=== PATIENT | female | born 1960 | race Two or more races ===

== ENCOUNTER 2017-04-08 07:05 | Outpatient (CLI) | payer OTHER ==
[~2017-04-08 07:05] MED LIST: ADULT ASPIRIN81 MG; CATAFLAM50 MG; INDERAL LA80 MG; KETO10TA2 PO; N
== END 2017-04-08 07:16 | disposition home or self-care (01) ==
LOC: SONOGRAMA 07:05 → MAMO-SONO 08:45
DX: R10.9 Unspecified abdominal pain (principal)

== ENCOUNTER 2017-04-08 07:39 | Outpatient (CLI) | payer OTHER | END 2017-04-08 07:51 | disposition home or self-care (01) | LOC: LAB 07:39 | DX: I10 Essential (primary) hypertension (principal); E78.4 Other hyperlipidemia; R10.9 Unspecified abdominal pain ==

== ENCOUNTER 2017-04-20 15:14 | Outpatient (CLI) | payer OTHER | END 2017-04-20 15:16 | disposition home or self-care (01) | LOC: LAB 15:14 | DX: B34.9 Viral infection, unspecified (principal) ==

== ENCOUNTER → 2017-05-18 | Outpatient (CLI) | payer OTHER ==
[~2017-05-18] VITALS: Ht 152.4 cm; Wt 50.8 kg
== END | disposition home or self-care (01) ==
LOC: OFIC 805 08:10
DX: J38.2 Nodules of vocal cords (principal); R49.0 Dysphonia

== ENCOUNTER 2017-07-02 07:29 | Outpatient (CLI) | payer OTHER ==
[~2017-07-02] VITALS: Ht 152.4 cm; Wt 50.8 kg
== END 2017-07-02 07:45 | disposition home or self-care (01) ==
LOC: OFIC 805 07:29
DX: J31.2 Chronic pharyngitis (principal); J31.0 Chronic rhinitis; R49.0 Dysphonia

== ENCOUNTER 2017-07-23 15:04 | Outpatient (CLI) | payer OTHER ==
[~2017-07-23] VITALS: Ht 152.4 cm; Wt 50.8 kg
== END 2017-07-23 15:20 | disposition home or self-care (01) ==
LOC: OFIC 805 15:04
DX: J31.0 Chronic rhinitis (principal); J38.7 Other diseases of larynx

== ENCOUNTER 2017-09-04 10:53 | Outpatient (CLI) | payer OTHER | END 2017-09-04 11:01 | disposition home or self-care (01) | LOC: SONOGRAMA 10:53 | DX: R22.1 Localized swelling, mass and lump, neck (principal) ==

== ENCOUNTER 2017-09-10 08:08 | Outpatient (CLI) | payer OTHER ==
[~2017-09-10] VITALS: Ht 152.4 cm; Wt 50.8 kg
== END 2017-09-10 08:25 | disposition home or self-care (01) ==
LOC: OFIC 805 08:08
DX: E04.1 Nontoxic single thyroid nodule (principal); R22.1 Localized swelling, mass and lump, neck

== ENCOUNTER 2017-09-10 09:46 | Outpatient (CLI) | payer OTHER | END 2017-09-10 09:51 | disposition home or self-care (01) | LOC: MAMO-SONO 09:46 | DX: Z12.31 Encounter for screening mammogram for malignant neoplasm of breast (principal); N60.11 Diffuse cystic mastopathy of right breast; N60.12 Diffuse cystic mastopathy of left breast ==

== ENCOUNTER 2017-09-14 07:52 | Outpatient (CLI) | payer OTHER | END 2017-09-14 07:59 | disposition home or self-care (01) | LOC: LAB 07:52 | DX: E04.1 Nontoxic single thyroid nodule (principal) ==

== ENCOUNTER 2017-12-13 08:29 | Outpatient (CLI) | payer OTHER ==
[~2017-12-13] VITALS: Ht 152.4 cm; Wt 50.8 kg
== END 2017-12-13 09:45 | disposition home or self-care (01) ==
LOC: OFIC 805 08:29
DX: E04.1 Nontoxic single thyroid nodule (principal); R49.0 Dysphonia; K21.0 Gastro-esophageal reflux disease with esophagitis

== ENCOUNTER 2017-12-24 09:04 | Outpatient (CLI) | payer OTHER | END 2017-12-24 09:20 | disposition home or self-care (01) | LOC: OFIC 805 09:04 | DX: J37.0 Chronic laryngitis (principal); K21.9 Gastro-esophageal reflux disease without esophagitis ==

== ENCOUNTER 2017-12-30 13:30 | Outpatient (CLI) | payer OTHER ==
[~2017-12-30] VITALS: Ht 152.4 cm; Wt 50.8 kg
== END 2017-12-30 13:40 | disposition home or self-care (01) ==
LOC: OFIC 805 13:30
DX: J04.0 Acute laryngitis (principal); R22.1 Localized swelling, mass and lump, neck; J31.0 Chronic rhinitis; R05 Cough; K21.9 Gastro-esophageal reflux disease without esophagitis

== ENCOUNTER 2018-01-31 08:26 | Outpatient (CLI) | payer OTHER ==
[~2018-01-31] VITALS: Ht 152.4 cm; Wt 50.8 kg
== END 2018-01-31 08:50 | disposition home or self-care (01) ==
LOC: OFIC 805 08:26
DX: R05 Cough (principal); J06.9 Acute upper respiratory infection, unspecified

== ENCOUNTER 2018-01-31 10:03 | Outpatient (CLI) | payer OTHER | END 2018-01-31 10:15 | disposition home or self-care (01) | LOC: LAB 10:03 | DX: J11.1 Influenza due to unidentified influenza virus with other respiratory manifestations (principal) ==

== ENCOUNTER 2018-02-12 11:58 | Outpatient (CLI) | payer OTHER | END 2018-02-12 12:14 | disposition home or self-care (01) | LOC: RAD 11:58 | DX: J11.1 Influenza due to unidentified influenza virus with other respiratory manifestations (principal) ==

== ENCOUNTER 2018-04-06 09:06 | Outpatient (CLI) | payer OTHER | END 2018-04-06 09:35 | disposition home or self-care (01) | LOC: MRI 09:06 → RAD 09:06 | DX: M54.2 Cervicalgia (principal) ==

== ENCOUNTER 2018-11-21 14:27 | Outpatient (CLI) | payer OTHER | END 2018-11-21 14:40 | disposition home or self-care (01) | LOC: NUCLEAR 14:27 | DX: M81.0 Age-related osteoporosis without current pathological fracture (principal); M85.80 Other specified disorders of bone density and structure, unspecified site ==

== ENCOUNTER 2018-11-25 13:24 | Outpatient (CLI) | payer OTHER | END 2018-11-25 13:33 | disposition home or self-care (01) | LOC: MAMO-SONO 13:24 | DX: Z12.31 Encounter for screening mammogram for malignant neoplasm of breast (principal); Z87.898 Personal history of other specified conditions; N63.10 Unspecified lump in the right breast, unspecified quadrant; N63.20 Unspecified lump in the left breast, unspecified quadrant ==

== ENCOUNTER 2019-01-12 16:18 | Outpatient (CLI) | payer OTHER | END 2019-01-12 16:22 | disposition home or self-care (01) | LOC: LAB 16:18 | DX: J11.1 Influenza due to unidentified influenza virus with other respiratory manifestations (principal) ==

== ENCOUNTER 2019-02-03 19:06 | Emergency (ER) | payer OTHER ==
[~2019-02-03] VITALS: Ht 154.9 cm; Wt 8.2 kg
[2019-02-03] MEDS ORDERED: CALTRATE 600+D1 EAC1 (19:21)
[2019-02-03] MEDS ORDERED: VITAMIN B122500 MCG (19:21)
== END 2019-02-03 20:33 | disposition home or self-care (01) ==
LOC: ER 19:06
DX: T23.212A Burn of second degree of left thumb (nail), initial encounter (principal); X08.8XXA Exposure to other specified smoke, fire and flames, initial encounter; Y93.89 Activity, other specified; Y92.89 Other specified places as the place of occurrence of the external cause; Y99.8 Other external cause status

== ENCOUNTER 2020-01-12 14:29 | Outpatient (CLI) | payer OTHER ==
[~2020-01-12 14:29] MED LIST changes: +CALTRATE 600+D1 EAC1; +VITAMIN B122500 MCG
== END 2020-01-12 15:04 | disposition home or self-care (01) ==
LOC: SONOGRAMA 14:29
DX: E04.1 Nontoxic single thyroid nodule (principal)

== ENCOUNTER 2020-11-29 10:15 | Outpatient (CLI) | payer OTHER | END 2020-11-29 10:30 | disposition home or self-care (01) | LOC: PPH VACUNA 10:15 | PROVIDERS: ATTEND Emergency Medicine Pediatric Emergency Medicine | DX: Z23 Encounter for immunization (principal) ==

== ENCOUNTER 2020-11-29 14:33 | Outpatient (CLI) | payer OTHER | END 2020-11-29 14:42 | disposition home or self-care (01) | LOC: NUCLEAR 14:33 | DX: M81.0 Age-related osteoporosis without current pathological fracture (principal) ==

== ENCOUNTER 2021-01-23 11:35 | Outpatient (CLI) | payer OTHER | END 2021-01-23 11:56 | disposition home or self-care (01) | LOC: MAMO-SONO 11:35 | PROVIDERS: ATTEND Specialist | DX: N63.0 Unspecified lump in unspecified breast (principal); Z12.31 Encounter for screening mammogram for malignant neoplasm of breast ==

== ENCOUNTER 2021-05-23 11:52 | Outpatient (CLI) | payer OTHER | END 2021-05-23 12:07 | disposition home or self-care (01) | LOC: SONOGRAMA 11:52 | PROVIDERS: ATTEND Otolaryngology | DX: R22.1 Localized swelling, mass and lump, neck (principal) ==

== ENCOUNTER 2021-06-26 08:00 | Outpatient (CLI) | payer OTHER | END 2021-06-26 08:30 | disposition home or self-care (01) | LOC: PPH VACUNA 08:00 | PROVIDERS: ATTEND Emergency Medicine Pediatric Emergency Medicine | DX: Z23 Encounter for immunization (principal) ==

== ENCOUNTER 2021-06-27 15:02 | Outpatient (CLI) | payer OTHER | END 2021-06-27 15:17 | disposition home or self-care (01) | LOC: LAB 15:02 | PROVIDERS: ATTEND General Practice | DX: Z20.822 Contact with and (suspected) exposure to COVID-19 (principal) ==

== ENCOUNTER 2021-08-05 07:53 | Outpatient (CLI) | payer OTHER | END 2021-08-05 08:06 | disposition home or self-care (01) | LOC: SONOGRAMA 07:53 | DX: R10.11 Right upper quadrant pain (principal) ==

== ENCOUNTER 2021-11-03 09:46 | Outpatient (CLI) | payer OTHER | END 2021-11-03 09:56 | disposition home or self-care (01) | LOC: PPH VACUNA 09:46 | PROVIDERS: ATTEND Emergency Medicine Pediatric Emergency Medicine | DX: Z23 Encounter for immunization (principal) ==

== ENCOUNTER 2022-01-26 07:36 | Outpatient (CLI) | payer OTHER | END 2022-01-26 08:02 | disposition home or self-care (01) | LOC: MAMO-SONO 07:36 | PROVIDERS: ATTEND Specialist | DX: Z12.31 Encounter for screening mammogram for malignant neoplasm of breast (principal); N63.0 Unspecified lump in unspecified breast ==

== ENCOUNTER 2022-02-12 07:25 | Outpatient (CLI) | payer OTHER | END 2022-02-12 07:42 | disposition home or self-care (01) | LOC: TOM 07:25 | PROVIDERS: ATTEND Internal Medicine Gastroenterology | DX: R10.12 Left upper quadrant pain (principal) ==

== ENCOUNTER → 2022-08-07 | Emergency (ER) | payer OTHER ==
[~2022-08-07] VITALS: Ht 154.9 cm; Wt 53.5 kg
== END | disposition home or self-care (01) ==
LOC: ER 11:58
DX: R42 Dizziness and giddiness (principal); Z88.8 Allergy status to other drugs, medicaments and biological substances

== ENCOUNTER 2022-12-31 13:49 | Outpatient (CLI) | payer OTHER | END 2022-12-31 13:51 | disposition home or self-care (01) | LOC: NUCLEAR 13:49 | DX: M81.0 Age-related osteoporosis without current pathological fracture (principal) ==

== ENCOUNTER 2023-01-12 08:28 | Outpatient (CLI) | payer OTHER | END 2023-01-12 08:36 | disposition home or self-care (01) | LOC: SONOGRAMA 08:28 | PROVIDERS: ATTEND Student in an Organized Health Care Education/Training Program | DX: E04.1 Nontoxic single thyroid nodule (principal); Z91.013 Allergy to seafood; Z91.018 Allergy to other foods ==

== ENCOUNTER 2023-01-28 11:01 | Outpatient (CLI) | payer OTHER | END 2023-01-28 11:16 | disposition home or self-care (01) | LOC: MAMO-SONO 11:01 | PROVIDERS: ATTEND Specialist | DX: Z12.31 Encounter for screening mammogram for malignant neoplasm of breast (principal); N63.0 Unspecified lump in unspecified breast ==

== ENCOUNTER 2023-04-20 12:30 | Emergency (ER) | payer OTHER ==
[~2023-04-20] VITALS: Ht 154.9 cm; Wt 55.8 kg
[2023-04-20] MEDS ORDERED: FAMOtidine 10 MG/ML (4ML VIAL) IV STA (14:13)
[2023-04-20] MEDS ORDERED: 0.9 % SODIUM CHLORIDE 1,000 ML IV STA (14:15)
[2023-04-20] MEDS ORDERED: ONDANSETRON HCL 2 MG/ML VIAL IV ONE (14:15)
[2023-04-20 15:47] LABS: URINE APPEARANCE Clear; URINE BILIRRUBIN Negative (NEGATIVE); URINE BLOOD Negative; URINE COLOR Yellow; URINE GLUCOSE Negative (NEGATIVE); URINE LEUKOCYTE Trace; URINE NITRATE Negative; URINE PROTEIN Negative (NEGATIVE); URINE UROBILINOGEN 0.2 E.U./dl
[2023-04-20 15:48] LABS: HEMATOCRIT 42.3 % (36.0-45.00); HEMOGLOBIN 14.9 g/dL (12.0-15.00); MEAN CELL VOLUME 89.5 fL (80.00-100.00); MEAN CORPUSCULAR HEMOGLOBIN 31.4 pg (27.00-32.0); MEAN CORPUSCULAR HGB CONC 35.1 g/dl (32.0-36.0); PLATELET COUNT 323 K/uL (150-450); RED BLOOD COUNT 4.73 M/uL (4.00-6.00); RED CELL DISTRIBUTION WIDTH 12.3 % (11.5-14.5)
[2023-04-20 15:51] LABS: URINE BACTERIA 59.2 uL (0.0-1933); URINE EPITHELIAL CELLS 4.9 uL (0.0-38.8); URINE RBC 4.3 uL (0.0-20.8); URINE WBC 7.5 uL (0.0-23.2)
[2023-04-20 16:13] LABS: CALCIUM 9.8 mg/dL (8.5-10.1); CREATININE SERUM 0.72 mg/dL (0.55-1.02); GFR 82.62; POTASSIUM 3.9 mEq/L (3.5-5.1)
== END 2023-04-20 17:58 | disposition home or self-care (01) ==
LOC: ER 12:30
PROVIDERS: General Practice
DX: R10.9 Unspecified abdominal pain (principal); Z91.013 Allergy to seafood; Z91.018 Allergy to other foods

== ENCOUNTER 2023-05-24 06:06 | Emergency (ER) | payer OTHER ==
[~2023-05-24] VITALS: Ht 157.5 cm; Wt 54.9 kg
[2023-05-24] MEDS ORDERED: KETOROLAC TROMETHAMINE 30 MG VIAL IV STA (07:37)
[2023-05-24] MEDS ORDERED: 0.9 % SODIUM CHLORIDE 1,000 ML IV ONE (07:45)
[2023-05-24 08:18] LABS: HEMATOCRIT 37.1 % (36.0-45.00); HEMOGLOBIN 13.2 g/dL (12.0-15.00); MEAN CELL VOLUME 91.6 fL (80.00-100.00); MEAN CORPUSCULAR HEMOGLOBIN 32.7 pg (27.00-32.0); MEAN CORPUSCULAR HGB CONC 35.6 g/dl (32.0-36.0); PLATELET COUNT 270 K/uL (150-450); RED BLOOD COUNT 4.05 M/uL (4.00-6.00); RED CELL DISTRIBUTION WIDTH 12.2 % (11.5-14.5)
[2023-05-24 08:47] LABS: PARTIAL THROMBOPLASTIN TIME 28.5 SECONDS (22.0-34.0); PROTHROMBIN TIME 10.5 SECONDS (9.0-11.5)
[2023-05-24 09:00] LABS: ALBUMIN 3.8 gm/dL (3.4-5.0); BILIRUBIN TOTAL 0.33 mg/dL (0.3-1.2); CALCIUM 9.1 mg/dL (8.5-10.1); CREATININE SERUM 0.82 mg/dL (0.55-1.02); GFR 71.11; GLOBULINA 3.9 G/DL (2.4-3.5); POTASSIUM 4.38 mEq/L (3.5-5.1); TOTAL PROTEIN 7.7 gm/dL (6.4-8.2)
[2023-05-24 09:52] LABS: URINE APPEARANCE Clear; URINE BACTERIA 52.8 uL (0.0-1933); URINE BILIRRUBIN Negative (NEGATIVE); URINE BLOOD Negative; URINE COLOR Yellow; URINE EPITHELIAL CELLS 8.9 uL (0.0-38.8); URINE GLUCOSE Negative (NEGATIVE); URINE LEUKOCYTE Small; URINE NITRATE Negative; URINE PROTEIN Negative (NEGATIVE); URINE RBC 2.5 uL (0.0-20.8); URINE UROBILINOGEN 0.2 E.U./dl
[2023-05-24] MEDS ORDERED: DICLOFENAC SODI75 MG PO (12:16)
[2023-05-24] MEDS ORDERED: PEPCID AC20 MG PO (12:16)
[2023-05-25] MEDS ORDERED: CARAFATE1 GM PO (16:03)
[2023-05-25] MEDS ORDERED: ACID REDUCER20 M1 PO (16:03)
[2023-05-25] MEDS ORDERED: PEPCID AC20 MG PO (16:03)
== END 2023-05-24 12:20 | disposition home or self-care (01) ==
LOC: ER 06:07
PROVIDERS: General Practice
DX: R10.32 Left lower quadrant pain (principal); Z91.013 Allergy to seafood; Z91.018 Allergy to other foods

== ENCOUNTER 2023-05-25 12:40 | Emergency (ER) | payer OTHER ==
[~2023-05-25] VITALS: Ht 154.9 cm; Wt 54.4 kg
[~2023-05-25 12:40] MED LIST changes: +DICLOFENAC SODI75 MG PO; +PEPCID AC20 MG PO
[2023-05-25] MEDS ORDERED: FAMOTIDINE/PF 20 MG/2 ML VIAL IV STA (13:27)
[2023-05-25] MEDS ORDERED: DEXTROSE 5 % AND 0.9 % NACL 1,000 ML IV STA (13:27)
[2023-05-25] MEDS ORDERED: MAG HYDROX/ALUMINUM HYD/SIMETH 30 ML BLIST.PACK PO STA (13:28)
[2023-05-25] MEDS ORDERED: HYOSCYAMINE SULFATE 0.125 MG TAB.SUBL SL ONE (13:30)
[2023-05-25 14:08] LABS: HEMATOCRIT 37.7 % (36.0-45.00); HEMOGLOBIN 13.1 g/dL (12.0-15.00); MEAN CELL VOLUME 91.6 fL (80.00-100.00); MEAN CORPUSCULAR HEMOGLOBIN 31.9 pg (27.00-32.0); MEAN CORPUSCULAR HGB CONC 34.8 g/dl (32.0-36.0); PLATELET COUNT 264 K/uL (150-450); RED BLOOD COUNT 4.12 M/uL (4.00-6.00); RED CELL DISTRIBUTION WIDTH 12.2 % (11.5-14.5)
[2023-05-25 14:14] LABS: URINE APPEARANCE Clear; URINE BILIRRUBIN Negative (NEGATIVE); URINE BLOOD Negative; URINE COLOR Yellow; URINE GLUCOSE Negative (NEGATIVE); URINE LEUKOCYTE Negative; URINE NITRATE Negative; URINE PROTEIN Negative (NEGATIVE); URINE UROBILINOGEN 0.2 E.U./dl
[2023-05-25 14:18] LABS: URINE BACTERIA 23.9 uL (0.0-1933); URINE EPITHELIAL CELLS 5.5 uL (0.0-38.8)
[2023-05-25 14:24] LABS: AMYLASE 71 U/L (25-115); LIPASE 34 U/L (13-75)
[2023-05-25 14:38] LABS: URINE RBC 1.1 uL (0.0-20.8)
[2023-05-25] MEDS ORDERED: CARAFATE1 GM PO (16:03)
[2023-05-25] MEDS ORDERED: ACID REDUCER20 M1 PO (16:03)
[2023-05-25] MEDS ORDERED: PEPCID AC20 MG PO (16:03)
== END 2023-05-25 16:10 | disposition home or self-care (01) ==
LOC: ER 12:40
PROVIDERS: Emergency Medicine
DX: K29.70 Gastritis, unspecified, without bleeding (principal); Z91.013 Allergy to seafood; Z91.018 Allergy to other foods

== ENCOUNTER 2023-12-16 12:25 | Emergency (ER) | payer OTHER ==
[~2023-12-16] VITALS: Ht 154.9 cm; Wt 56.7 kg
[~2023-12-16 12:25] MED LIST changes: +ACID REDUCER20 M1 PO; +CARAFATE1 GM PO
[2023-12-16 13:14] VITALS: BP 121/79; O2SAT 96
[2023-12-16 16:29] LABS: HEMATOCRIT 39.7 % (36.0-45.00); HEMOGLOBIN 13.5 g/dL (12.0-15.00); MEAN CELL VOLUME 91.8 fL (80.00-100.00); MEAN CORPUSCULAR HEMOGLOBIN 31.2 pg (27.00-32.0); PLATELET COUNT 269 K/uL (150-450); RED BLOOD COUNT 4.33 M/uL (4.00-6.00); RED CELL DISTRIBUTION WIDTH 12.3 % (11.5-14.5)
[2023-12-16] MEDS ORDERED: CEFTRIAXONE SODIUM 1,000 MG VIAL IM STA (18:25)
[2023-12-16] MEDS ORDERED: KETOROLAC TROMETHAMINE 60 MG VIAL IM STA (18:25)
[2023-12-16] MEDS ORDERED: CEFACLOR ER500 MG PO (18:52)
== END 2023-12-16 19:17 | disposition home or self-care (01) ==
LOC: ER 12:26
DX: R53.81 Other malaise (principal); K04.7 Periapical abscess without sinus; Z20.822 Contact with and (suspected) exposure to COVID-19; Z91.013 Allergy to seafood; Z91.018 Allergy to other foods

== ENCOUNTER 2023-12-26 23:19 | Emergency (ER) | payer OTHER ==
[~2023-12-26] VITALS: Ht 157.5 cm; Wt 56.7 kg
[~2023-12-26 23:19] MED LIST changes: +CEFACLOR ER500 MG PO
[2023-12-27] MEDS ORDERED: PROMETHAZINE HCL 25 MG/ML AMPUL IM STA (00:17)
[2023-12-27] MEDS ORDERED: ACETAMINOPHEN 500 MG GEL..CAP PO STA (00:18)
[2023-12-27 01:46] LABS: HEMATOCRIT 36.3 % (36.0-45.00); HEMOGLOBIN 12.7 g/dL (12.0-15.00); MEAN CELL VOLUME 89.7 fL (80.00-100.00); MEAN CORPUSCULAR HEMOGLOBIN 31.4 pg (27.00-32.0); MEAN CORPUSCULAR HGB CONC 35.1 g/dl (32.0-36.0); PLATELET COUNT 239 K/uL (150-450); RED BLOOD COUNT 4.05 M/uL (4.00-6.00); RED CELL DISTRIBUTION WIDTH 12.2 % (11.5-14.5)
[2023-12-27 01:55] LABS: INR 1.01; PARTIAL THROMBOPLASTIN TIME 26.4 SECONDS (22.0-34.0)
[2023-12-27 02:55] LABS: ALBUMIN 3.7 gm/dL (3.4-5.0); BILIRUBIN TOTAL 0.35 mg/dL (0.3-1.2); CREATININE SERUM 0.74 mg/dL (0.55-1.02); GFR 79.78; GLOBULINA 2.9 G/DL (2.4-3.5); POTASSIUM 3.63 mEq/L (3.5-5.1); TOTAL PROTEIN 6.6 gm/dL (6.4-8.2)
[2023-12-27] MEDS ORDERED: MOTION SICKNESS25 M1 PO (04:09)
== END 2023-12-27 04:56 ==
LOC: ER 23:19
PROVIDERS: General Practice
DX: R42 Dizziness and giddiness (principal); Z91.018 Allergy to other foods; Z91.013 Allergy to seafood

== ENCOUNTER 2024-01-05 07:36 | Outpatient (CLI) | payer OTHER ==
[~2024-01-05 07:36] MED LIST changes: +MOTION SICKNESS25 M1 PO
== END 2024-01-05 07:46 | disposition home or self-care (01) ==
LOC: TOM 07:36
DX: J32.0 Chronic maxillary sinusitis (principal)

== ENCOUNTER 2024-05-09 16:31 | Outpatient (CLI) | payer OTHER | END 2024-05-09 16:35 | disposition home or self-care (01) | LOC: MAMO-SONO 16:31 | PROVIDERS: ATTEND Specialist | DX: N63.0 Unspecified lump in unspecified breast (principal); Z12.31 Encounter for screening mammogram for malignant neoplasm of breast ==

== ENCOUNTER 2025-01-11 07:31 | Outpatient (CLI) | payer OTHER | END 2025-01-11 07:42 | disposition home or self-care (01) | LOC: SONOGRAMA 07:31 | DX: E04.1 Nontoxic single thyroid nodule (principal) ==